=== PATIENT | female | born 1945 | race Caucasian/White ===

== ENCOUNTER 2018-10-02 19:33 | Inpatient (IN) | payer MEDICARE, MEDICAID ==
[~2018-10-02] VITALS: Ht 157.5 cm; Wt 81.8 kg
[~2018-10-02 19:33] MED LIST: ASPI81TA45 PO; CELE200C PO; GABA300C10 PO; HYDR-3240 PO; LEVO100T5 PO; METO25TA35 PO; PIPE3.375 IVPB; TRAZ50TA66 PO
[2018-10-02 20:26] LABS: BASOPHILS # (AUTO) 0.04 x10^3/uL (0-0.1); BASOPHILS % (AUTO) 0 % (0-1); EOSINOPHILS # (AUTO) 0.31 x10^3/uL (0-0.4); EOSINOPHILS % (AUTO) 3 % (1-7); LYMPHOCYTES # (AUTO) 2.66 x10^3/uL (1-3.4); LYMPHOCYTES % (AUTO) 27 % (22-44); MD NO; MEAN CORPUSCULAR HEMOGLOBIN 30.2 pg (27.0-34.8); MEAN CORPUSCULAR HGB CONC 33.8 g/dL (32.4-35.8); MEAN CORPUSCULAR VOLUME 89.2 fL (80-100); MEAN PLATELET VOLUME 7.9 fL (7.4-10.4); MONOCYTES # (AUTO) 0.49 x10^3/uL (0.2-0.8); MONOCYTES % (AUTO) 5 % (2-9); NEUTROPHILS # (AUTO) 6.48 x10^3/uL (1.8-6.8); NEUTROPHILS % (AUTO) 65 % (42-75); PLATELET COUNT 350 x10^3/uL (130-400); RED BLOOD COUNT 4.92 x10^6/uL (3.82-5.3); RED CELL DISTRIBUTION WIDTH 14.8 % (9.6-15.2)
[2018-10-02 20:39] LABS: ALANINE AMINOTRANSFERASE 36 U/L (12-78); ALBUMIN 3.5 g/dL (3.4-5.0); ANION GAP 7 mmol/L (5-15); CALCIUM 9.1 mg/dL (8.5-10.1); CHLORIDE 108 mmol/L (98-107); CREATININE 0.75 mg/dL (0.55-1.02)
[2018-10-02 20:41] LABS: ALKALINE PHOSPHATASE 128 U/L (45-117); BILIRUBIN,TOTAL 0.2 mg/dL (0.2-1.0); TOTAL PROTEIN 7.7 g/dL (6.4-8.2)
[2018-10-02] MEDS ORDERED: SODIUM CHLORIDE 0.9% 1,000ML IVBOLUS ONE (22:00)
[2018-10-02] MEDS ORDERED: SODIUM CHLORIDE FLUSH 10ML SYR IVF ONE (22:00)
[2018-10-02] MEDS ORDERED: CEFTRIAXONE PMX 1GM/50ML 50 ML IVPB ONE (22:00)
[2018-10-02] MEDS ORDERED: CEFTRIAXONE PMX 1GM/50ML 50 ML ONE (22:04)
[2018-10-02] MEDS ORDERED: HYDROmorphone 2 MG/ML, 1ML ONE (22:04)
[2018-10-02] MEDS ORDERED: GABA300C10 PO (22:26)
[2018-10-02] MEDS ORDERED: TETR15DR16 EACHEYE (22:28)
[2018-10-02] MEDS ORDERED: CELE50CA PO (22:28)
[2018-10-02] MEDS ORDERED: THYROID PILL PO (22:28)
[2018-10-02] MEDS ORDERED: HYDROmorphone 1 MG/ML, 1ML IV PRN (22:30)
[2018-10-02] MEDS ORDERED: POLYETHYLENE GLYCOL 17 GM PACKET PO PRN (23:00)
[2018-10-02] MEDS ORDERED: hydrALAzine 20 MG/ML, 1ML IVPush PRN (23:00)
[2018-10-02] MEDS ORDERED: ONDANSETRON ODT 4 MG PO PRN (23:00)
[2018-10-02] MEDS ORDERED: LIDODERM 5% PATCH TD PRN (23:00)
[2018-10-02] MEDS ORDERED: TEMAZEPAM 15 MG CAPSULE PO PRN (23:00)
[2018-10-02] MEDS ORDERED: VANCOMYCIN PER PHARMACY MC PRN (23:00)
[2018-10-02] MEDS ORDERED: PHARMACOKINETIC MONITORING MC PRN (23:30)
[2018-10-02] MEDS: TETRAHYDROZOLINE OPHTH 0.05% 15ML EACHEYE SCH (23:30)
[2018-10-02] MEDS ORDERED: CELECOXIB 50 MG PO SCH (23:30)
[2018-10-02] MEDS ORDERED: PHARMACOKINETIC CONSULTATION MC ONE (23:30)
[2018-10-02] MEDS: ENOXAPARIN 40 MG/0.4 ML SQ SCH (23:38)
[2018-10-02] MEDS: NICOTINE 21 MG/24 HR PATCH.TD24 TD SCH (23:38)
[2018-10-03] MEDS ORDERED: VANCOMYCIN 1,600 MG in SODIUM CHLORIDE 0.9% 250 ML IV ONE
[2018-10-03 00:04] VITALS: BP 130/73
[2018-10-03 01:48] VITALS: BP 115/69
[2018-10-03] MEDS: OXYcodone/APAP 5/325MG TABLET PO PRN ×5 (02:01→23:54)
[2018-10-03] MEDS ORDERED: CELEBREX MC SCH ×2 (06:00)
[2018-10-03 07:20] VITALS: BP 106/67
[2018-10-03] MEDS: KETOROLAC 30 MG/1 ML IV PRN (07:37)
[2018-10-03] MEDS: SODIUM CHLORIDE 0.9% 1,000 ML IV SCH ×2 (07:38→23:55)
[2018-10-03 08:17] LABS: ANION GAP 6 mmol/L (5-15); CALCIUM 8.8 mg/dL (8.5-10.1); CHLORIDE 109 mmol/L (98-107); CREATININE 0.76 mg/dL (0.55-1.02)
[2018-10-03] MEDS: TETRAHYDROZOLINE OPHTH 0.05% 15ML EACHEYE SCH ×2 (08:31→19:56)
[2018-10-03] MEDS: GABAPENTIN 300 MG CAPSULE PO SCH (08:31)
[2018-10-03 14:00] VITALS: BP 138/74
[2018-10-03] MEDS: CARVEDILOL 3.125 MG TABLET PO SCH (17:32)
[2018-10-03 19:35] VITALS: BP 144/76
[2018-10-03] MEDS: NICOTINE 21 MG/24 HR PATCH.TD24 TD SCH (19:56)
[2018-10-03] MEDS: TRAZODONE 50MG TABLET PO SCH ×2 (19:57)
[2018-10-03] MEDS: ENOXAPARIN 40 MG/0.4 ML SQ SCH (19:57)
[2018-10-03] MEDS: VANCOMYCIN 1,600 MG in SODIUM CHLORIDE 0.9% 250 ML IV SCH (23:55)
[2018-10-04 02:28] VITALS: BP 129/78
[2018-10-04] MEDS ORDERED: VANCOMYCIN 1,600 MG in SODIUM CHLORIDE 0.9% 250 ML IV SCH (03:33)
[2018-10-04] MEDS: KETOROLAC 30 MG/1 ML IV PRN ×3 (04:48→19:01)
[2018-10-04] MEDS: CARVEDILOL 3.125 MG TABLET PO SCH ×2 (04:48→18:06)
[2018-10-04 05:42] LABS: BASOPHILS # (AUTO) 0.08 x10^3/uL (0-0.1); BASOPHILS % (AUTO) 1 % (0-1); EOSINOPHILS # (AUTO) 0.36 x10^3/uL (0-0.4); EOSINOPHILS % (AUTO) 5 % (1-7); LYMPHOCYTES # (AUTO) 2.58 x10^3/uL (1-3.4); LYMPHOCYTES % (AUTO) 35 % (22-44); MD NO; MEAN CORPUSCULAR HEMOGLOBIN 29.5 pg (27.0-34.8); MEAN CORPUSCULAR HGB CONC 32.6 g/dL (32.4-35.8); MEAN CORPUSCULAR VOLUME 90.5 fL (80-100); MEAN PLATELET VOLUME 7.6 fL (7.4-10.4); MONOCYTES # (AUTO) 0.42 x10^3/uL (0.2-0.8); MONOCYTES % (AUTO) 6 % (2-9); NEUTROPHILS # (AUTO) 4.01 x10^3/uL (1.8-6.8); NEUTROPHILS % (AUTO) 54 % (42-75); PLATELET COUNT 303 x10^3/uL (130-400); RED BLOOD COUNT 4.26 x10^6/uL (3.82-5.3); RED CELL DISTRIBUTION WIDTH 15.2 % (9.6-15.2)
[2018-10-04 05:55] LABS: ANION GAP 7 mmol/L (5-15); C-REACTIVE PROTEIN, QUANT 0.86 mg/dL (0.02-0.49); CALCIUM 8.5 mg/dL (8.5-10.1); CHLORIDE 109 mmol/L (98-107); CREATININE 0.65 mg/dL (0.55-1.02)
[2018-10-04] MEDS: OXYcodone/APAP 5/325MG TABLET PO PRN ×3 (06:01→22:42)
[2018-10-04 07:00] VITALS: BP 122/75
[2018-10-04] MEDS: GABAPENTIN 300 MG CAPSULE PO SCH (08:36)
[2018-10-04] MEDS: TETRAHYDROZOLINE OPHTH 0.05% 15ML EACHEYE SCH ×2 (08:37→20:09)
[2018-10-04 13:10] VITALS: BP 134/78
[2018-10-04] MEDS: SODIUM CHLORIDE 0.9% 1,000 ML IV SCH (16:36)
[2018-10-04 19:09] VITALS: BP 121/77
[2018-10-04] MEDS: NICOTINE 21 MG/24 HR PATCH.TD24 TD SCH (20:08)
[2018-10-04] MEDS: TRAZODONE 50MG TABLET PO SCH (20:09)
[2018-10-04] MEDS: ENOXAPARIN 40 MG/0.4 ML SQ SCH (20:09)
[2018-10-05] MEDS: VANCOMYCIN 1,600 MG in SODIUM CHLORIDE 0.9% 250 ML IV SCH (00:21)
[2018-10-05 01:33] VITALS: BP 128/77
[2018-10-05] MEDS: KETOROLAC 30 MG/1 ML IV PRN ×3 (03:16→19:51)
[2018-10-05 05:52] VITALS: BP 132/81
[2018-10-05] MEDS: CARVEDILOL 3.125 MG TABLET PO SCH ×2 (05:53→18:06)
[2018-10-05 07:15] VITALS: BP 138/85
[2018-10-05] MEDS: TETRAHYDROZOLINE OPHTH 0.05% 15ML EACHEYE SCH ×2 (07:44→21:34)
[2018-10-05] MEDS: GABAPENTIN 300 MG CAPSULE PO SCH (07:45)
[2018-10-05] MEDS: OXYcodone/APAP 5/325MG TABLET PO PRN ×3 (07:45→21:32)
[2018-10-05] MEDS: SODIUM CHLORIDE 0.9% 1,000 ML IV SCH (07:46)
[2018-10-05 13:40] VITALS: BP 107/69
[2018-10-05 18:05] VITALS: BP 125/80
[2018-10-05 19:09] VITALS: BP 124/79
[2018-10-05] MEDS: NICOTINE 21 MG/24 HR PATCH.TD24 TD SCH (21:33)
[2018-10-05] MEDS: TRAZODONE 50MG TABLET PO SCH (21:33)
[2018-10-05] MEDS: ENOXAPARIN 40 MG/0.4 ML SQ SCH (21:34)
[2018-10-06 00:53] VITALS: BP 126/74
[2018-10-06] MEDS: KETOROLAC 30 MG/1 ML IV PRN ×4 (02:02→22:41)
[2018-10-06] MEDS: CARVEDILOL 3.125 MG TABLET PO SCH ×2 (05:22→18:04)
[2018-10-06] MEDS: OXYcodone/APAP 5/325MG TABLET PO PRN ×3 (05:26→18:04)
[2018-10-06 06:45] VITALS: BP 133/81
[2018-10-06] MEDS: TETRAHYDROZOLINE OPHTH 0.05% 15ML EACHEYE SCH ×2 (09:00→20:36)
[2018-10-06] MEDS: GABAPENTIN 300 MG CAPSULE PO SCH (09:00)
[2018-10-06] MEDS ORDERED: ENOX40SY4 SQ (12:11)
[2018-10-06] MEDS ORDERED: NICO-487 TD (12:11)
[2018-10-06] MEDS ORDERED: PIPE3.378 IV (12:11)
[2018-10-06 13:10] VITALS: BP 139/86
[2018-10-06] MEDS: PIPERACILLIN/TAZO/PMX 3.375GM 50 ML IV SCH ×2 (14:37→20:35)
[2018-10-06 19:13] VITALS: BP 132/82
[2018-10-06] MEDS: NICOTINE 21 MG/24 HR PATCH.TD24 TD SCH (20:35)
[2018-10-06] MEDS: ENOXAPARIN 40 MG/0.4 ML SQ SCH (20:35)
[2018-10-06] MEDS: TRAZODONE 50MG TABLET PO SCH (20:36)
[2018-10-07 00:19] VITALS: BP 120/79
[2018-10-07] MEDS: OXYcodone/APAP 5/325MG TABLET PO PRN ×4 (01:55→21:59)
[2018-10-07] MEDS: PIPERACILLIN/TAZO/PMX 3.375GM 50 ML IV SCH ×4 (02:46→21:59)
[2018-10-07 06:12] VITALS: BP 130/81
[2018-10-07] MEDS: CARVEDILOL 3.125 MG TABLET PO SCH ×2 (06:12→18:31)
[2018-10-07] MEDS: KETOROLAC 30 MG/1 ML IV PRN ×3 (07:03→20:25)
[2018-10-07 07:15] VITALS: BP 115/79
[2018-10-07] MEDS: TETRAHYDROZOLINE OPHTH 0.05% 15ML EACHEYE SCH ×2 (09:38→20:25)
[2018-10-07] MEDS: GABAPENTIN 300 MG CAPSULE PO SCH (09:38)
[2018-10-07] MEDS ORDERED: MAGNESIUM CITRATE 300ML ORAL SOL PO ONE (10:00)
[2018-10-07] MEDS ORDERED: BISACODYL 10 MG SUPP PR PRN (10:00)
[2018-10-07] MEDS: SENNA/DOCUSATE TABLET PO SCH (10:12)
[2018-10-07 15:59] VITALS: BP 124/78
[2018-10-07 18:29] VITALS: BP 113/67
[2018-10-07] MEDS: ENOXAPARIN 40 MG/0.4 ML SQ SCH (20:24)
[2018-10-07] MEDS: TRAZODONE 50MG TABLET PO SCH (20:25)
[2018-10-07] MEDS: NICOTINE 21 MG/24 HR PATCH.TD24 TD SCH (20:25)
[2018-10-08] VITALS: BP 110/67
[2018-10-08] MEDS: OXYcodone/APAP 5/325MG TABLET PO PRN ×2 (03:55→10:11)
[2018-10-08] MEDS: PIPERACILLIN/TAZO/PMX 3.375GM 50 ML IV SCH ×2 (03:56→11:16)
[2018-10-08] MEDS: CARVEDILOL 3.125 MG TABLET PO SCH (06:08)
[2018-10-08 07:22] VITALS: BP 111/72
[2018-10-08] MEDS: SENNA/DOCUSATE TABLET PO SCH (09:27)
[2018-10-08] MEDS: GABAPENTIN 300 MG CAPSULE PO SCH (09:27)
[2018-10-08] MEDS: TETRAHYDROZOLINE OPHTH 0.05% 15ML EACHEYE SCH (09:27)
[2018-10-08] MEDS ORDERED: PIPE3.378 IV (11:57)
[2018-10-08] MEDS ORDERED: ACETAMINOPHEN 325 MG TABLET PO PRN (12:00)
[2018-10-08] MEDS ORDERED: ACET325T14 PO (12:01)
[2018-10-08] MEDS ORDERED: SENN1TAB8 PO (12:01)
[2018-10-08] MEDS ORDERED: GABA300C10 PO (12:01)
[2018-10-08] MEDS ORDERED: OXYcodone/APAP 5/325MG TABLET PO PRN (13:30)
[2018-10-08] MEDS ORDERED: GABAPENTIN 100 MG CAPSULE PO SCH (16:00)
[2018-10-08] MEDS ORDERED: GABAPENTIN 300 MG CAPSULE PO SCH (21:00)
== END 2018-10-08 13:52 | DRG 603 ==
LOC: ED 22:00 → 3NE 22:07
PROVIDERS: ADMIT Internal Medicine; ATTEND Internal Medicine
DX: L03.115 Cellulitis of right lower limb (principal); F33.9 Major depressive disorder, recurrent, unspecified; J96.10 Chronic respiratory failure, unspecified whether with hypoxia or hypercapnia; E03.9 Hypothyroidism, unspecified; F17.210 Nicotine dependence, cigarettes, uncomplicated; E66.9 Obesity, unspecified; G47.00 Insomnia, unspecified; I11.0 Hypertensive heart disease with heart failure; I44.7 Left bundle-branch block, unspecified; I50.9 Heart failure, unspecified; J44.9 Chronic obstructive pulmonary disease, unspecified; Z63.8 Other specified problems related to primary support group; K59.00 Constipation, unspecified; Z85.3 Personal history of malignant neoplasm of breast; Z99.81 Dependence on supplemental oxygen; M19.90 Unspecified osteoarthritis, unspecified site; Z68.33 Body mass index [BMI] 33.0-33.9, adult
CPT/HCPCS: 36415; 80048; 80053; 80202; 83605; 83880; 85025; 86140; 87040; 87070; 87077; 87147; 87186; 87205; 93005; 93922; 96374; 96375; G0378; J0696; J1170; J1650; J1885; J2543; J3370; J7030; J7050

== ENCOUNTER 2018-12-25 19:11 | Inpatient (IN) | payer MEDICARE, MEDICAID ==
[~2018-12-25] VITALS: Ht 157.5 cm; Wt 82.0 kg
[~2018-12-25 19:11] MED LIST changes: +ACET325T14 PO; +CELE50CA PO; +ENOX40SY4 SQ; +NICO-487 TD; +PIPE3.378 IV; +SENN1TAB8 PO; +TETR15DR16 EACHEYE; +THYROID PILL PO
--- NOTE | 2018-12-25 19:18 | NUR ---
BIB [facility] FROM HOME WITH C/O PAIN TO RIGHT FOOT, PT HAS BEEN DEALING WITH INFECTION ON AND OFF X 1 YEAR. MONITORS APPLIED, SIDERAILS UP X2, CALL LIGHT WITHIN REACH. AWAITING ERP FOR EVAL AND ORDERS
[2018-12-25] MEDS ORDERED: HYDROcodone/APAP 5/325 TABLET ONE (19:45)
--- NOTE | 2018-12-25 19:55 | NUR ---
IV SITE STARTED, PT RESTING CALMLY, CALL LIGHT WITHIN REACH.
[2018-12-25] MEDS ORDERED: VANCOMYCIN 1,200 MG in SODIUM CHLORIDE 0.9% 250 ML IV ONE (20:00)
[2018-12-25] MEDS ORDERED: SODIUM CHLORIDE FLUSH 10ML SYR IVF ONE (20:00)
[2018-12-25] MEDS ORDERED: PLEASE ENTER ALLERGIES MC SCH (20:00)
[2018-12-25] MEDS ORDERED: PHARMACOKINETIC CONSULTATION MC ONE (20:00)
[2018-12-25] MEDS ORDERED: VANCOMYCIN PER PHARMACY IV ONE (20:00)
[2018-12-25] MEDS ORDERED: HYDROcodone/APAP 5/325 TABLET PO ONE (20:00)
[2018-12-25] MEDS ORDERED: AMPICILLIN/SULBACTAM 3 GM in SODIUM CHLORIDE 0.9% 100 ML IVPB ONE (20:00)
[2018-12-25 20:33] LABS: BASOPHILS # (AUTO) 0.05 x10^3/uL (0-0.1); BASOPHILS % (AUTO) 1 % (0-1); EOSINOPHILS # (AUTO) 0.54 x10^3/uL (0-0.4); EOSINOPHILS % (AUTO) 6 % (1-7); LYMPHOCYTES % (AUTO) 31 % (22-44); MD NO; MEAN CORPUSCULAR HEMOGLOBIN 29.1 pg (27.0-34.8); MEAN CORPUSCULAR HGB CONC 32.9 g/dL (32.4-35.8); MEAN CORPUSCULAR VOLUME 88.6 fL (80-100); MEAN PLATELET VOLUME 8.2 fL (7.4-10.4); MONOCYTES % (AUTO) 6 % (2-9); NEUTROPHILS # (AUTO) 5.01 x10^3/uL (1.8-6.8); NEUTROPHILS % (AUTO) 57 % (42-75); PLATELET COUNT 312 x10^3/uL (130-400); RED BLOOD COUNT 4.62 x10^6/uL (3.82-5.3); RED CELL DISTRIBUTION WIDTH 13.5 % (9.6-15.2)
[2018-12-25 20:39] LABS: HCT (SEDRATE) 40.9 % (34.6-47.8)
[2018-12-25 20:44] LABS: ALBUMIN 3.6 g/dL (3.4-5.0); ANION GAP 5 mmol/L (5-15); CALCIUM 8.6 mg/dL (8.5-10.1); CHLORIDE 113 mmol/L (98-107)
[2018-12-25 20:45] LABS: CREATININE 0.76 mg/dL (0.55-1.02)
[2018-12-25] MEDS ORDERED: METO200T47 PO (21:45)
[2018-12-25] MEDS ORDERED: ONDANSETRON 2MG/ML, 2ML IVPush PRN (23:00)
[2018-12-25] MEDS ORDERED: morphine SULFATE 10 MG/ML, 1ML IVPush PRN (23:00)
[2018-12-25] MEDS ORDERED: hydrALAzine 20 MG/ML, 1ML IVPush PRN (23:00)
[2018-12-25] MEDS ORDERED: BISACODYL 10 MG SUPP PR PRN (23:00)
[2018-12-25] MEDS ORDERED: PROMETHAZINE 25 MG/ML, 1ML IM PRN (23:00)
[2018-12-25] MEDS ORDERED: VANCOMYCIN PER PHARMACY MC PRN (23:00)
[2018-12-25] MEDS ORDERED: LABETALOL 5 MG/ML SYRINGE IVPush PRN (23:00)
[2018-12-25] MEDS ORDERED: POLYETHYLENE GLYCOL 17 GM PACKET PO PRN (23:00)
[2018-12-25] MEDS ORDERED: ONDANSETRON ODT 4 MG PO PRN (23:00)
[2018-12-25] MEDS ORDERED: OXYcodone/APAP 5/325MG TABLET PO PRN (23:00)
[2018-12-25] MEDS ORDERED: ALBUTEROL/IPRATROPIUM 2.5MG/0.5MG, 3 ML ONE (23:29)
[2018-12-25] MEDS ORDERED: PHARMACOKINETIC MONITORING MC PRN (23:30)
[2018-12-25] MEDS ORDERED: HYDROmorphone 2 MG/ML, 1ML ONE (23:35)
[2018-12-25 23:41] LABS: FREE T4 (FREE THYROXINE) 0.59 ng/dL (0.76-1.46); THYROID STIMULATING HORMONE 21.1 mIU/L (0.358-3.740)
[2018-12-25] MEDS: NICOTINE 7 MG/24 HR PATCH.TD24 TD SCH (23:42)
[2018-12-25] MEDS: HYDROmorphone 1 MG/ML, 1ML IV PRN (23:43)
[2018-12-25] MEDS: HEPARIN 5,000 UNITS/ML, 1ML SQ SCH (23:45)
[2018-12-25] MEDS: LACTOBACILLUS CHEW TABLET PO SCH (23:47)
[2018-12-25 23:54] LABS: HEMOGLOBIN A1C 6.2 % (4.2-6.3)
[2018-12-25 23:58] VITALS: BP 121/74
[2018-12-26] MEDS ORDERED: ALBUTEROL/IPRATROPIUM 2.5MG/0.5MG, 3 ML NPPB PRN
[2018-12-26] MEDS: PIPERACILLIN/TAZO/PMX 3.375GM 50 ML IV SCH ×3 (01:12→13:17)
[2018-12-26 04:52] LABS: BASOPHILS # (AUTO) 0.06 x10^3/uL (0-0.1); BASOPHILS % (AUTO) 1 % (0-1); EOSINOPHILS % (AUTO) 7 % (1-7); LYMPHOCYTES % (AUTO) 28 % (22-44); MD NO; MEAN CORPUSCULAR HEMOGLOBIN 28.9 pg (27.0-34.8); MEAN CORPUSCULAR HGB CONC 32.4 g/dL (32.4-35.8); MONOCYTES # (AUTO) 0.64 x10^3/uL (0.2-0.8); MONOCYTES % (AUTO) 8 % (2-9); NEUTROPHILS # (AUTO) 4.56 x10^3/uL (1.8-6.8); NEUTROPHILS % (AUTO) 56 % (42-75); PLATELET COUNT 284 x10^3/uL (130-400); RED BLOOD COUNT 4.26 x10^6/uL (3.82-5.3); RED CELL DISTRIBUTION WIDTH 13.7 % (9.6-15.2)
[2018-12-26 04:55] VITALS: BP 128/79
[2018-12-26] MEDS: METOPROLOL SUCCINATE 50 MG TAB.ER.24H PO SCH (05:02)
[2018-12-26 05:06] LABS: ALBUMIN 2.8 g/dL (3.4-5.0); CALCIUM 8.1 mg/dL (8.5-10.1); CHLORIDE 116 mmol/L (98-107)
[2018-12-26 05:12] LABS: ALANINE AMINOTRANSFERASE 19 U/L (12-78); ALKALINE PHOSPHATASE 71 U/L (45-117); ANION GAP 6 mmol/L (5-15); BILIRUBIN,TOTAL 0.6 mg/dL (0.2-1.0); CHOL/HDL RATIO 3.9; CHOLESTEROL, TOTAL 168 mg/dL (140-239); CREATININE 0.71 mg/dL (0.55-1.02); HDL CHOL % 26 % (28-40); HDL CHOLESTEROL (DIRECT) 43 mg/dL (40-60); LDL CHOLESTEROL,CALCULATED 108 mg/dL (54-169); LDL/HDL RATIO 2.5 (0.5-3.0); TOTAL PROTEIN 5.9 g/dL (6.4-8.2); TRIGLYCERIDES 87 mg/dL (50-200); VLDL CHOLESTEROL 17 mg/dL (0-25)
[2018-12-26] MEDS ORDERED: HYDROmorphone 2 MG/ML, 1ML ONE ×2 (06:35→17:47)
[2018-12-26] MEDS: HYDROmorphone 1 MG/ML, 1ML IV PRN (06:36)
[2018-12-26 07:12] VITALS: BP 96/56
[2018-12-26] MEDS: LACTOBACILLUS CHEW TABLET PO SCH ×3 (08:36→22:12)
[2018-12-26] MEDS: GABAPENTIN 300 MG CAPSULE PO SCH (08:36)
[2018-12-26] MEDS: SENNA/DOCUSATE TABLET PO SCH (08:37)
[2018-12-26] MEDS: HEPARIN 5,000 UNITS/ML, 1ML SQ SCH ×2 (08:37→16:53)
[2018-12-26 13:56] VITALS: BP 100/63
[2018-12-26] MEDS: VANCOMYCIN 1,500 MG in SODIUM CHLORIDE 0.9% 250 ML IV SCH (14:31)
[2018-12-26] MEDS: AMPICILLIN/SULBACTAM 3 GM in SODIUM CHLORIDE 0.9% 100 ML IV SCH ×2 (17:49→23:46)
[2018-12-26 19:40] VITALS: BP 107/70
[2018-12-26] MEDS: TRAZODONE 50MG TABLET PO SCH (21:00)
[2018-12-26] MEDS: NICOTINE 7 MG/24 HR PATCH.TD24 TD SCH (22:13)
[2018-12-27] MEDS ORDERED: HYDROmorphone 2 MG/ML, 1ML ONE ×2 (01:02→04:37)
[2018-12-27] MEDS: HYDROmorphone 1 MG/ML, 1ML IV PRN ×2 (01:06→04:40)
[2018-12-27] MEDS: HEPARIN 5,000 UNITS/ML, 1ML SQ SCH ×3 (01:07→17:00)
[2018-12-27 01:13] VITALS: BP 116/71
[2018-12-27 05:11] LABS: BASOPHILS # (AUTO) 0.08 x10^3/uL (0-0.1); BASOPHILS % (AUTO) 1 % (0-1); EOSINOPHILS % (AUTO) 10 % (1-7); LYMPHOCYTES % (AUTO) 23 % (22-44); MD NO; MEAN CORPUSCULAR HEMOGLOBIN 29.6 pg (27.0-34.8); MEAN CORPUSCULAR VOLUME 89.7 fL (80-100); MEAN PLATELET VOLUME 8.5 fL (7.4-10.4); MONOCYTES # (AUTO) 0.35 x10^3/uL (0.2-0.8); MONOCYTES % (AUTO) 5 % (2-9); NEUTROPHILS # (AUTO) 4.24 x10^3/uL (1.8-6.8); NEUTROPHILS % (AUTO) 61 % (42-75); PLATELET COUNT 290 x10^3/uL (130-400); RED BLOOD COUNT 4.47 x10^6/uL (3.82-5.3); RED CELL DISTRIBUTION WIDTH 13.6 % (9.6-15.2)
[2018-12-27 05:44] LABS: ALANINE AMINOTRANSFERASE 96 U/L (12-78); ALBUMIN 2.7 g/dL (3.4-5.0); ANION GAP 4 mmol/L (5-15); CALCIUM 8.2 mg/dL (8.5-10.1); CHLORIDE 113 mmol/L (98-107); CREATININE 0.68 mg/dL (0.55-1.02)
[2018-12-27 05:46] LABS: ALKALINE PHOSPHATASE 83 U/L (45-117); BILIRUBIN,TOTAL 0.5 mg/dL (0.2-1.0); TOTAL PROTEIN 5.9 g/dL (6.4-8.2)
[2018-12-27] MEDS: METOPROLOL SUCCINATE 50 MG TAB.ER.24H PO SCH (05:51)
[2018-12-27] MEDS: AMPICILLIN/SULBACTAM 3 GM in SODIUM CHLORIDE 0.9% 100 ML IV SCH ×3 (05:51→20:20)
[2018-12-27 07:15] VITALS: BP 100/68
[2018-12-27] MEDS: VANCOMYCIN 1,500 MG in SODIUM CHLORIDE 0.9% 250 ML IV SCH (08:51)
[2018-12-27] MEDS: OXYcodone IR 5MG TABLET PO PRN ×3 (09:22→19:53)
[2018-12-27] MEDS: SENNA/DOCUSATE TABLET PO SCH (09:23)
[2018-12-27] MEDS: LACTOBACILLUS CHEW TABLET PO SCH ×3 (09:23→19:53)
[2018-12-27] MEDS: GABAPENTIN 300 MG CAPSULE PO SCH (09:23)
[2018-12-27 15:10] VITALS: BP 124/81
[2018-12-27] MEDS: DOCUSATE 100 MG CAPSULE PO PRN (17:07)
[2018-12-27 18:48] VITALS: BP 133/75
[2018-12-27] MEDS: TRAZODONE 50MG TABLET PO SCH (21:00)
[2018-12-27] MEDS: NICOTINE 7 MG/24 HR PATCH.TD24 TD SCH (22:00)
[2018-12-28] MEDS: HEPARIN 5,000 UNITS/ML, 1ML SQ SCH ×3 (01:17→17:52)
[2018-12-28 01:20] VITALS: BP 139/82
[2018-12-28] MEDS: AMPICILLIN/SULBACTAM 3 GM in SODIUM CHLORIDE 0.9% 100 ML IV SCH ×3 (01:54→18:49)
[2018-12-28] MEDS: OXYcodone IR 5MG TABLET PO PRN ×4 (01:58→22:58)
[2018-12-28] MEDS: VANCOMYCIN 1,500 MG in SODIUM CHLORIDE 0.9% 250 ML IV SCH ×2 (02:30→19:57)
[2018-12-28] MEDS: METOPROLOL SUCCINATE 50 MG TAB.ER.24H PO SCH (06:23)
[2018-12-28 07:46] VITALS: BP 148/82
[2018-12-28] MEDS: GABAPENTIN 300 MG CAPSULE PO SCH (08:56)
[2018-12-28] MEDS: SENNA/DOCUSATE TABLET PO SCH (09:00)
[2018-12-28] MEDS: DOCUSATE 100 MG CAPSULE PO PRN (09:11)
[2018-12-28] MEDS: LACTOBACILLUS CHEW TABLET PO SCH ×3 (09:21→19:57)
[2018-12-28 14:10] LABS: FREE T4 (FREE THYROXINE) 0.57 ng/dL (0.76-1.46)
[2018-12-28 14:15] VITALS: BP 127/84
[2018-12-28] MEDS: TRAZODONE 50MG TABLET PO SCH (19:53)
[2018-12-28] MEDS: ACETAMINOPHEN 325 MG TABLET PO PRN (19:57)
[2018-12-28 20:25] VITALS: BP 117/78
[2018-12-28] MEDS: NICOTINE 7 MG/24 HR PATCH.TD24 TD SCH (22:58)
[2018-12-29 00:09] VITALS: BP 118/81
[2018-12-29] MEDS: AMPICILLIN/SULBACTAM 3 GM in SODIUM CHLORIDE 0.9% 100 ML IV SCH ×3 (01:01→12:30)
[2018-12-29] MEDS: HEPARIN 5,000 UNITS/ML, 1ML SQ SCH ×3 (01:01→17:33)
[2018-12-29] MEDS: ACETAMINOPHEN 325 MG TABLET PO PRN ×4 (03:56→21:02)
[2018-12-29 05:11] LABS: BASOPHILS % (AUTO) 1 % (0-1); EOSINOPHILS % (AUTO) 6 % (1-7); LYMPHOCYTES # (AUTO) 2.66 x10^3/uL (1-3.4); LYMPHOCYTES % (AUTO) 32 % (22-44); MD NO; MEAN CORPUSCULAR HEMOGLOBIN 29.1 pg (27.0-34.8); MEAN CORPUSCULAR HGB CONC 32.5 g/dL (32.4-35.8); MEAN CORPUSCULAR VOLUME 89.7 fL (80-100); MEAN PLATELET VOLUME 9.6 fL (7.4-10.4); MONOCYTES # (AUTO) 0.43 x10^3/uL (0.2-0.8); MONOCYTES % (AUTO) 5 % (2-9); NEUTROPHILS # (AUTO) 4.57 x10^3/uL (1.8-6.8); NEUTROPHILS % (AUTO) 55 % (42-75); PLATELET COUNT 141 x10^3/uL (130-400); RED BLOOD COUNT 4.76 x10^6/uL (3.82-5.3); RED CELL DISTRIBUTION WIDTH 13.5 % (9.6-15.2)
[2018-12-29 05:20] LABS: ALANINE AMINOTRANSFERASE 56 U/L (12-78); ALBUMIN 2.8 g/dL (3.4-5.0); ANION GAP 6 mmol/L (5-15); CALCIUM 8.2 mg/dL (8.5-10.1); CHLORIDE 111 mmol/L (98-107); CREATININE 0.58 mg/dL (0.55-1.02)
[2018-12-29 05:22] LABS: ALKALINE PHOSPHATASE 85 U/L (45-117); BILIRUBIN,TOTAL 0.4 mg/dL (0.2-1.0); TOTAL PROTEIN 6.1 g/dL (6.4-8.2)
[2018-12-29] MEDS: METOPROLOL SUCCINATE 50 MG TAB.ER.24H PO SCH (05:53)
[2018-12-29 07:10] VITALS: BP 114/78
[2018-12-29] MEDS: LACTOBACILLUS CHEW TABLET PO SCH ×3 (08:00→20:59)
[2018-12-29] MEDS: GABAPENTIN 300 MG CAPSULE PO SCH (08:00)
[2018-12-29] MEDS: SENNA/DOCUSATE TABLET PO SCH (08:00)
[2018-12-29 13:49] VITALS: BP 133/80
[2018-12-29] MEDS: VANCOMYCIN 1,500 MG in SODIUM CHLORIDE 0.9% 250 ML IV SCH (14:00)
[2018-12-29] MEDS: AMOXICILLIN/CLAV 875-125MG TABLET PO SCH (17:33)
[2018-12-29] MEDS: DOXYCYCLINE 100MG TABLET PO SCH (17:35)
[2018-12-29 18:40] VITALS: BP 122/75
[2018-12-29] MEDS: OXYcodone IR 5MG TABLET PO PRN (19:38)
[2018-12-29] MEDS: TRAZODONE 50MG TABLET PO SCH (19:43)
[2018-12-29] MEDS ORDERED: LORazepam 0.5MG TABLET PO ONE (21:00)
[2018-12-29] MEDS: NICOTINE 7 MG/24 HR PATCH.TD24 TD SCH (21:03)
[2018-12-30 00:33] VITALS: BP 115/65
[2018-12-30] MEDS: HEPARIN 5,000 UNITS/ML, 1ML SQ SCH ×3 (01:00→16:52)
[2018-12-30] MEDS: OXYcodone IR 5MG TABLET PO PRN ×2 (01:43→12:08)
[2018-12-30 04:29] LABS: BASOPHILS # (AUTO) 0.05 x10^3/uL (0-0.1); BASOPHILS % (AUTO) 1 % (0-1); EOSINOPHILS # (AUTO) 0.43 x10^3/uL (0-0.4); EOSINOPHILS % (AUTO) 6 % (1-7); LYMPHOCYTES # (AUTO) 2.85 x10^3/uL (1-3.4); LYMPHOCYTES % (AUTO) 38 % (22-44); MD NO; MEAN CORPUSCULAR HEMOGLOBIN 29.4 pg (27.0-34.8); MEAN CORPUSCULAR HGB CONC 33.2 g/dL (32.4-35.8); MEAN CORPUSCULAR VOLUME 88.4 fL (80-100); MEAN PLATELET VOLUME 8.2 fL (7.4-10.4); MONOCYTES % (AUTO) 5 % (2-9); NEUTROPHILS # (AUTO) 3.74 x10^3/uL (1.8-6.8); NEUTROPHILS % (AUTO) 50 % (42-75); PLATELET COUNT 302 x10^3/uL (130-400); RED CELL DISTRIBUTION WIDTH 13.7 % (9.6-15.2)
[2018-12-30] MEDS: AMOXICILLIN/CLAV 875-125MG TABLET PO SCH ×2 (04:30→16:51)
[2018-12-30 04:41] LABS: ALBUMIN 2.8 g/dL (3.4-5.0); ANION GAP 6 mmol/L (5-15); CALCIUM 8.3 mg/dL (8.5-10.1); CHLORIDE 110 mmol/L (98-107)
[2018-12-30 04:46] LABS: ALANINE AMINOTRANSFERASE 47 U/L (12-78); ALKALINE PHOSPHATASE 74 U/L (45-117); BILIRUBIN,TOTAL 0.4 mg/dL (0.2-1.0); CREATININE 0.59 mg/dL (0.55-1.02); TOTAL PROTEIN 5.9 g/dL (6.4-8.2)
[2018-12-30] MEDS: DOXYCYCLINE 100MG TABLET PO SCH ×2 (05:04→08:01)
[2018-12-30] MEDS: METOPROLOL SUCCINATE 50 MG TAB.ER.24H PO SCH (06:00)
[2018-12-30 07:11] VITALS: BP 126/77
[2018-12-30] MEDS: GABAPENTIN 300 MG CAPSULE PO SCH (08:01)
[2018-12-30] MEDS: SENNA/DOCUSATE TABLET PO SCH ×2 (08:01→08:02)
[2018-12-30] MEDS: LACTOBACILLUS CHEW TABLET PO SCH ×2 (08:01→16:51)
[2018-12-30] MEDS ORDERED: LISINOPRIL 5 MG TABLET PO SCH (09:00)
[2018-12-30] MEDS ORDERED: PROPOFOL 10 MG/ML, 20ML ONE (11:00)
[2018-12-30 11:42] VITALS: BP 127/75
[2018-12-30 12:11] VITALS: BP 130/80
[2018-12-30] MEDS ORDERED: DOXY100T PO (16:07)
[2018-12-30] MEDS ORDERED: AMOX1TAB12 PO (16:07)
[2018-12-30] MEDS ORDERED: METO-93 PO (16:07)
[2018-12-30] MEDS ORDERED: LISI5TAB7 PO (16:07)
== END 2018-12-30 18:15 | disposition home or self-care (01) | DRG 603 ==
LOC: EDSEX 19:11 → ED 21:03 → MERGE 21:03 → EDIP 22:04 → 3NW 23:11
PROVIDERS: ADMIT Internal Medicine; ATTEND Internal Medicine
PROC: B245ZZ4 Ultrasonography of Left Heart, Transesophageal (ICD-10-PCS; principal; 2018-12-30 11:00)
DX: L03.115 Cellulitis of right lower limb (principal); I42.9 Cardiomyopathy, unspecified; J96.10 Chronic respiratory failure, unspecified whether with hypoxia or hypercapnia; D68.69 Other thrombophilia; I50.20 Unspecified systolic (congestive) heart failure; B95.61 Methicillin susceptible Staphylococcus aureus infection as the cause of diseases classified elsewhere; E66.9 Obesity, unspecified; F17.210 Nicotine dependence, cigarettes, uncomplicated; S91.301A Unspecified open wound, right foot, initial encounter; F31.9 Bipolar disorder, unspecified; I11.0 Hypertensive heart disease with heart failure; I34.0 Nonrheumatic mitral (valve) insufficiency; I44.7 Left bundle-branch block, unspecified; I48.91 Unspecified atrial fibrillation; J44.9 Chronic obstructive pulmonary disease, unspecified; Z79.01 Long term (current) use of anticoagulants; Z85.3 Personal history of malignant neoplasm of breast; Z99.81 Dependence on supplemental oxygen; Z68.33 Body mass index [BMI] 33.0-33.9, adult; X58.XXXA Exposure to other specified factors, initial encounter; Y93.9 Activity, unspecified; Y92.89 Other specified places as the place of occurrence of the external cause; Y99.8 Other external cause status
CPT/HCPCS: 36415; 80048; 80053; 80061; 80202; 82040; 83036; 83605; 83735; 84100; 84439; 84443; 85025; 85651; 87040; 87070; 87077; 87147; 87186; 87205; 93306; 93312; 93325; 94640; 96374; 96375; 99285; G0378; J0295; J1170; J1644; J2543; J2704; J3370; J7620; J7050

== ENCOUNTER 2019-05-02 16:26 | Emergency (ER) | payer MEDICARE, MEDICAID ==
[~2019-05-02] VITALS: Ht 157.5 cm; Wt 73.4 kg
[~2019-05-02 16:26] MED LIST changes: +AMOX1TAB12 PO; +DOXY100T PO; +LISI5TAB7 PO; +METO-93 PO; +METO200T47 PO; +SENN-177 PO; -SENN1TAB8 PO
--- NOTE | 2019-05-02 17:06 | NUR ---
Pt presents to ED with c/o right posterior upper back pain for 1 and 1/2 weeks with unknown trauma. Pt denies sob, n/v/d, cp, trauma, syncope, and CMS is intact. Pt resting on gurney connected to quality assurance monitor final, NIBP, and continous pulse ox. Both bedrails up for safety measures. Call light within reach. NADN. No needs expressed.
[2019-05-02 18:07] LABS: BASOPHILS # (AUTO) 0.09 x10^3/uL (0-0.1); BASOPHILS % (AUTO) 1 % (0-1); EOSINOPHILS # (AUTO) 0.57 x10^3/uL (0-0.4); EOSINOPHILS % (AUTO) 6 % (1-7); LYMPHOCYTES # (AUTO) 2.81 x10^3/uL (1-3.4); LYMPHOCYTES % (AUTO) 28 % (22-44); MD NO; MEAN CORPUSCULAR HEMOGLOBIN 28.7 pg (27.0-34.8); MEAN CORPUSCULAR HGB CONC 32.3 g/dL (32.4-35.8); MEAN PLATELET VOLUME 7.7 fL (7.4-10.4); MONOCYTES # (AUTO) 0.56 x10^3/uL (0.2-0.8); MONOCYTES % (AUTO) 6 % (2-9); NEUTROPHILS # (AUTO) 6.06 x10^3/uL (1.8-6.8); NEUTROPHILS % (AUTO) 60 % (42-75); PLATELET COUNT 331 x10^3/uL (130-400); RED BLOOD COUNT 4.96 x10^6/uL (3.82-5.3); RED CELL DISTRIBUTION WIDTH 13.8 % (9.6-15.2)
[2019-05-02 18:14] LABS: ALBUMIN 3.3 g/dL (3.4-5.0); ANION GAP 6 mmol/L (5-15); CALCIUM 9.1 mg/dL (8.5-10.1); CHLORIDE 110 mmol/L (98-107)
[2019-05-02 18:15] LABS: CREATININE 0.77 mg/dL (0.55-1.02)
[2019-05-02] MEDS ORDERED: ONDANSETRON 2MG/ML, 2ML ONE (18:42)
[2019-05-02] MEDS ORDERED: HYDROmorphone 2 MG/ML, 1ML ONE (18:43)
[2019-05-02] MEDS ORDERED: ONDANSETRON 2MG/ML, 2ML IVPush ONE (19:00)
[2019-05-02] MEDS ORDERED: HYDROmorphone 2 MG/ML, 1ML IVPush ONE (19:00)
--- NOTE | 2019-05-02 19:01 | NUR ---
Provided bedside report to PELON Lisa. All questions answered. NADN. No needs expressed. PELON Lisa to assume care of pt.
--- NOTE | 2019-05-02 19:03 | NUR ---
report from kriss valadez in [place]
[2019-05-02 20:06] VITALS: BP 110/70
--- NOTE | 2019-05-02 20:06 | NUR ---
pt resting in bed in [facility]
--- NOTE | 2019-05-02 20:37 | NUR ---
awaiting [facility] to transport pt back home pt is on home o2 2l nc and is wc bound in [facility] that is not here pt was brought by [facility]
== END 2019-05-02 21:29 | disposition home or self-care (01) ==
LOC: ED 21:04
DX: M94.0 Chondrocostal junction syndrome [Tietze] (principal); I11.0 Hypertensive heart disease with heart failure; I50.9 Heart failure, unspecified; M19.90 Unspecified osteoarthritis, unspecified site; E03.9 Hypothyroidism, unspecified; J44.9 Chronic obstructive pulmonary disease, unspecified; Z88.5 Allergy status to narcotic agent; F17.200 Nicotine dependence, unspecified, uncomplicated
CPT/HCPCS: 36415; 71046; 71260; 80048; 82040; 85025; 93005; 96374; 96375; 99284; J1170; J2405